=== PATIENT | male | born 1985 | race Caucasian/White ===

== ENCOUNTER 2020-12-20 19:56 | Emergency (ER) | payer OTHER, SELFPAY | END 2020-12-20 21:11 | disposition home or self-care (01) | LOC: MADERS 19:56 | DX: S93.401A Sprain of unspecified ligament of right ankle, initial encounter (principal); F17.290 Nicotine dependence, other tobacco product, uncomplicated; W11.XXXA Fall on and from ladder, initial encounter ==

== ENCOUNTER 2023-09-28 10:05 | Emergency (ER) | payer SELFPAY ==
[2023-09-28] MEDS ORDERED: Lidocaine 1% (PF) 30 ML VIAL ONE (10:25)
[2023-09-28] MEDS ORDERED: Boostrix 0.5 ML (Tdap) VIAL (>/=7 yrs of age) ONE (10:26)
[2023-09-28] MEDS ORDERED: Bacitracin 1 PK ONE (11:15)
== END 2023-09-28 11:25 | disposition home or self-care (01) ==
LOC: MADERS 10:05
DX: S61.213A Laceration without foreign body of left middle finger without damage to nail, initial encounter (principal); F17.290 Nicotine dependence, other tobacco product, uncomplicated; W25.XXXA Contact with sharp glass, initial encounter; Z23 Encounter for immunization
CPT/HCPCS: 12002; 90471; 90715; J2001

== ENCOUNTER 2023-10-09 12:16 | Emergency (ER) | payer SELFPAY | END 2023-10-09 12:54 | disposition home or self-care (01) | LOC: MADERS 12:16 | DX: S61.213D Laceration without foreign body of left middle finger without damage to nail, subsequent encounter (principal); X58.XXXD Exposure to other specified factors, subsequent encounter ==